=== PATIENT | male | born 1995 | race Asian ===

== ENCOUNTER 2018-02-04 19:58 | Emergency (ER) | payer OTHER ==
[~2018-02-04] VITALS: Ht 193 cm; Wt 112.5 kg
[2018-02-04 20:48] VITALS: BP 131/62
== END 2018-02-04 21:18 | disposition home or self-care (01) ==
LOC: ED 19:58
DX: K21.9 Gastro-esophageal reflux disease without esophagitis (principal); R07.89 Other chest pain